=== PATIENT | male | born 1985 | race Caucasian/White ===

== ENCOUNTER 2018-04-09 21:03 | Emergency (ER) | payer OTHER ==
[2018-04-09] MEDS ORDERED: LIDOCAINE 2% 10 ML MDV SUBQ STA (21:20)
--- NOTE | 2018-04-09 21:27 | ED Physician Documentation ---
PD HPI LOWER EXT INJURY - Stated complaint Stated Complaint: R BIG TOE INJ - Chief complaint Chief Complaint: Ext Problem - History obtained from History obtained from: Patient - History of Present Illness PD HPI LOW EXT INJURY LOCATION: Right, Toe (great) Type of injury: Blunt / blow (dropped a box on his toe) Where injury occurred: Home Timing - onset: How many hours ago (9) Timing - details: Abrupt onset Pain level max: 8 Pain level now: 8 Improved by: Rest Worsened by: Moving, Palpating Associated symptoms: No: Weakness, Numbness, Tingling, Swelling Similar symptoms before: Has not had sx before Recently seen: Not recently seen Review of Systems Neurologic: denies: Focal weakness, Numbness PD PAST MEDICAL HISTORY - Past Medical History Past Medical History: Yes Cardiovascular: Hypertension Psych: Depression - Past Surgical History Past Surgical History: Yes - Present Medications Home Medications: Ambulatory Orders Medication Instructions Recorded Confirmed Lisinopril 20 mg PO 04/09/18 Sertraline [Zoloft] 25 mg PO DAILY 04/09/18 04/09/18 - Allergies Allergies/Adverse Reactions: Allergies Allergy/AdvReac Type Severity Reaction Status Date / Time No Known Drug Allergies Allergy Verified 04/09/18 21:08 - Social History Does the pt smoke?: Yes Smoking Status: Current every day smoker Does the pt drink ETOH?: Yes Does the pt have substance abuse?: No - Immunizations Immunizations are current?: Yes PD ED PE NORMAL - Vitals Vital signs reviewed: Yes - General General: Alert and oriented X 3 - HEENT HEENT: Moist mucous membranes - Derm Derm: Warm and dry - Extremities Extremities: Other (R great toe - swelling and ecchymosis to the IP joint, small subungual hematoma. ) Results - Vitals Vitals: Vital Signs - 24 hr 04/09/18 04/09/18 21:07 22:10 Temperature 36.8 C 36.9 C Heart Rate 81 79 Respiratory 16 16 Rate Blood Pressure 150/95 H 149/94 H O2 Saturation 97 95 Oxygen O2 Source Room air - Rads (name of study) R great toe Radiology: Prelim report reviewed, EMP read contemporaneously, See rad report ( Nondisplaced fracture of first distal phalanx) PD MEDICAL DECISION MAKING - ED course Complexity details: reviewed results, re-evaluated patient, considered differential, d/w patient ED course: Patient is a 32-year-old male with a nondisplaced fracture of the first distal phalanx of the right foot. He also has a subungual hematoma. 2% lidocaine was used to anesthetize the toe, then electrocautery was used to trephinate the nail and the subungual hematoma was evacuated. Placed in a postoperative shoe. The wound was also bandaged. Patient counseled regarding signs and symptoms for which I believe and urgent re-evaluation would be necessary. Patient with good understanding of and agreement to plan and is comfortable going home at this time This document was made in part using voice recognition software. While efforts are made to proofread this document, sound alike and grammatical errors may occur. - Sepsis Event Vital Signs: Vital Signs - 24 hr 04/09/18 04/09/18 21:07 22:10 Temperature 36.8 C 36.9 C Heart Rate 81 79 Respiratory 16 16 Rate Blood Pressure 150/95 H 149/94 H O2 Saturation 97 95 Oxygen O2 Source Room air Departure - Departure Disposition: 01 Home, Self Care Clinical Impression: Subungual hematoma Toe contusion Qualifiers: Encounter type: initial encounter Toe: great toe Damage to nail status: with damage Laterality: right Qualified Code(s): S90.211A - Contusion of right great toe with damage to nail, initial encounter Toe fracture Qualifiers: Encounter type: initial encounter Toe: great toe Fracture type: closed Phalanx : distal Fracture alignment: nondisplaced Laterality: right Qualified Code(s): S92.424A - Nondisplaced fracture of distal phalanx of right great toe, initial encounter for closed fracture Condition: Good Instructions: ED Hematoma Subungual, ED Fx Toe Closed Follow-Up: SUSAN Cordero [Provider Group] - Within 1 week Comments: You do have a nondisplaced fracture of your right great toe. This should heal without difficulty. Wear the postoperative shoe until released by your doctor. He should be reevaluated in 1 week. He will also need to wear steel toed boots at work. Return if you worsen Soak the great toe 2-3 times daily for the next 2-3 days to prevent reaccumulation of blood beneath the toenail Forms: Activity restrictions Discharge Date/Time: 04/09/18 22:10
--- NOTE | 2018-04-09 21:48 | XRAY Report ---
Procedure Date: 04/09/2018 Accession Number: [id number] / [id number] Procedure: XR - Toe(s) RT CPT Code: FULL RESULT: EXAM: RIGHT TOE RADIOGRAPHY EXAM DATE: 04/09/2018 09:25 PM. CLINICAL HISTORY: Swelling pain. COMPARISON: None. TECHNIQUE: 3 views. FINDINGS: Bones: There is nondisplaced fracture of the distal tip of the first distal phalanx. No intra-articular fracture. Joints: Normal. No subluxations. Soft Tissues: There is soft tissue swelling of the first digit. IMPRESSION: Nondisplaced fracture of first distal phalanx. RADIA
[2018-04-09 22:12] VITALS: BP 149/94
== END 2018-04-09 22:10 | disposition home or self-care (01) ==
LOC: ED 21:03
DX: S90.211A Contusion of right great toe with damage to nail, initial encounter (principal); S92.424A Nondisplaced fracture of distal phalanx of right great toe, initial encounter for closed fracture; W20.8XXA Other cause of strike by thrown, projected or falling object, initial encounter; Y92.009 Unspecified place in unspecified non-institutional (private) residence as the place of occurrence of the external cause
CPT/HCPCS: 11740; 73660; 99283

== ENCOUNTER 2019-01-13 16:22 | Emergency (ER) | payer OTHER ==
[2019-01-13 16:26] VITALS: BP 131/80
[2019-01-13] MEDS ORDERED: CHERRY SYRUP 10 ML UDC PO ONE (16:42)
[2019-01-13] MEDS ORDERED: DEXAMETHASONE 10 MG/ML VIAL PO STA (16:42)
--- NOTE | 2019-01-13 16:58 | ED Physician Documentation ---
PD HPI URI - Stated complaint Stated Complaint: SWIFT/CLAMMY/NAUSEA/SORE THROAT - Chief complaint Chief Complaint: General - History obtained from History obtained from: Patient, Family - History of Present Illness Timing - onset: Yesterday Timing duration: Days (1) Timing details: Gradual onset, Still present Associated symptoms: Fever, Chills, Sweats, Nasal congestion, Rhinorrhea, Dry cough, NVD Contributing factors: Sick contact Improves by: Rest, Medication Worsened by: Activity Similar symptoms before: Diagnosis (flu) Recently seen: Not recently seen - Additional information Additional information: Previously well 33-year-old male has developed a fever cough and congestion. He does have a significant sore throat especially on the right side, associated with this and muscle aches and pains. He does have some pain in his left ear as well. Review of Systems Constitutional: reports: Fever, Chills, Myalgias, Fatigue, Sweats Eyes: denies: Decreased vision Ears: reports: Ear pain Nose: reports: Rhinorrhea / runny nose, Congestion Throat: reports: Sore throat Cardiac: denies: Chest pain / pressure, Palpitations Respiratory: reports: Cough. denies: Dyspnea GI: reports: Vomiting PD PAST MEDICAL HISTORY - Past Medical History Past Medical History: Yes Cardiovascular: Hypertension Psych: Depression - Past Surgical History Past Surgical History: Yes - Present Medications Home Medications: Ambulatory Orders Medication Instructions Recorded Confirmed RX: Lisinopril 20 mg PO 04/09/18 RX: Amoxicillin 875 mg PO BID #20 tablet 01/13/19 - Allergies Allergies/Adverse Reactions: Allergies Allergy/AdvReac Type Severity Reaction Status Date / Time No Known Drug Allergies Allergy Verified 01/13/19 16:26 - Social History Does the pt smoke?: Yes Smoking Status: Current every day smoker Does the pt drink ETOH?: Yes Does the pt have substance abuse?: No - Immunizations Immunizations are current?: Yes PD ED PE NORMAL - Vitals Vital signs reviewed: Yes (febrile tachy and hypertensive ) - General General: Alert and oriented X 3, No acute distress, Well developed/nourished - HEENT HEENT: Atraumatic, PERRL, EOMI, Other (The right TM is clear the left is inflamed centrally the pharynx is with 2+ swelling on the right with exudate. ) - Neck Neck: Supple, no meningeal sign, No bony TTP - Cardiac Cardiac: No murmur, Other (tachy to 100) - Respiratory Respiratory: No respiratory distress, Clear bilaterally - Abdomen Abdomen: Soft, Non tender - Back Back: No CVA TTP, No spinal TTP - Derm Derm: Normal color, Warm and dry, No rash - Extremities Extremities: No deformity, No edema - Neuro Neuro: Alert and oriented X 3, electrical accessories ii assembler 2-12 intact, No motor deficit, No sensory d eficit, Normal speech Eye Opening: Spontaneous Motor: Obeys Commands Verbal: Oriented GCS Score: 15 - Psych Psych: Normal mood, Normal affect Results - Vitals Vitals: Vital Signs - 24 hr 01/13/19 16:24 Temperature 38.9 C H Heart Rate 101 H Respiratory 20 Rate Blood Pressure 131/80 H O2 Saturation 93 Oxygen O2 Source Room air - Labs Labs: Laboratory Tests 01/13/19 16:35 Group A Strep Rapid POSITIVE H PD MEDICAL DECISION MAKING - ED course Complexity details: reviewed results, re-evaluated patient, considered differential, d/w patient, d/w family ED course: 33 y/o male with acute fever sore throat and aches has + rapid strep and he is given decadron 10mg PO in the ED and started on amoxicillin. Departure - Departure Disposition: 01 Home, Self Care Clinical Impression: Strep pharyngitis Condition: Stable Instructions: ED Strep Pharyngitis Conf Follow-Up: VERONICA HODGE MD [Primary Care Provider] - Prescriptions: RX: Amoxicillin 875 mg PO BID #20 tablet Forms: Activity restrictions Discharge Date/Time: 01/13/19 17:14
== END 2019-01-13 17:14 | disposition home or self-care (01) ==
LOC: ED 16:22
DX: J02.0 Streptococcal pharyngitis (principal); B95.5 Unspecified streptococcus as the cause of diseases classified elsewhere; I10 Essential (primary) hypertension; F17.200 Nicotine dependence, unspecified, uncomplicated
CPT/HCPCS: 87430; 99283; A9270

== ENCOUNTER 2021-03-18 09:09 | Outpatient (CLI) | payer OTHER ==
--- NOTE | 2021-03-18 12:19 | MRI Report ---
PROCEDURE: Elbow RT W/O INDICATIONS: RIGHT ELBOW PAIN TECHNIQUE: Noncontrast coronal proton density fast spin echo and T2 fast spin echo with fat saturation, axial an d sagittal T1 spin echo and T2 fast spin echo with fat saturation through the elbow. COMPARISON: None. FINDINGS: Image quality: Excellent. Lateral structures: The lateral ulnar collateral ligament and radial collateral ligament both appear intact. The overlying common extensor tendon also appears normal. Medial structures: The ulnar collateral ligament appears intact. The overlying common flexor tendon appears normal. The ulnar nerve appears normal in size and signal within the cubital tunnel. Anterior structures: Distal brachialis tendon is intact. There is suggestion of tendinosis and low-gr melody partial-thickness tear involving distal biceps tendon at its insertion on proximal radius. No ful l-thickness bicipital tendon rupture. No bicipitoradial bursal fluid. The median and radial neurovas cular bundles appear normal; no focal muscle atrophy to suggest nerve impingement. Posterior structures: The triceps tendon appears intact. No olecranon bursal fluid. Bone and cartilage: No bone marrow contusions or fractures. No osteochondral injuries. IMPRESSION: 1. Tendinosis and very low-grade intrasubstance partial thickness tear involving distal biceps tendon at its proximal radial insertion. No full-thickness bicipital tendon rupture. 2. Medial and lateral elbow tendons and ligaments are grossly intact. 3. No marrow edema. No fracture or dislocation. No significant joint effusion. Reviewed by: Preston Marino MD on 03/18/2021 12:18 PM PDT Approved by: Preston Marino MD on 03/18/2021 12:18 PM PDT Station ID: [id number]
== END 2021-03-18 09:10 | disposition home or self-care (01) ==
LOC: DI 09:09
PROVIDERS: ATTEND Family Medicine
DX: M25.521 Pain in right elbow (principal); S46.211A Strain of muscle, fascia and tendon of other parts of biceps, right arm, initial encounter